=== PATIENT | female | born 1965 | race Two or more races ===

== ENCOUNTER 2024-06-12 10:01 | Emergency (ER) | payer OTHER ==
[~2024-06-12] VITALS: Ht 152.4 cm; Wt 63.0 kg
[~2024-06-12 10:01] MED LIST: PYRIDIUM100 MG PO
[2024-06-12] MEDS ORDERED: METHYLPREDNISOLONE SOD SUCC 125 MG VIAL IV STA (12:33)
[2024-06-12] MEDS ORDERED: DIPHENHYDRAMINE HCL 50 MG/ML VIAL 1ML IV STA (12:34)
[2024-06-12] MEDS ORDERED: METHYLPREDNISOLONE SOD SUCC 125 MG VIAL ONE (12:41)
[2024-06-12] MEDS ORDERED: DIPHENHYDRAMINE HCL 50 MG/ML VIAL 1ML ONE (12:41)
== END 2024-06-12 16:32 | disposition home or self-care (01) ==
LOC: ER 10:04
DX: R21 Rash and other nonspecific skin eruption (principal); Z91.013 Allergy to seafood